=== PATIENT | male | born 1970 | race Two or more races ===

== ENCOUNTER 2024-04-22 19:22 | Emergency (ER) | payer OTHER ==
[~2024-04-22] VITALS: Ht 182.9 cm; Wt 84.8 kg
[2024-04-22] MEDS ORDERED: TRAMADOL HCL 50 MG TABLET PO STA ×2 (22:25→22:26)
== END 2024-04-22 22:43 | disposition home or self-care (01) ==
LOC: ER 19:25
DX: S90.01XA Contusion of right ankle, initial encounter (principal); X58.XXXA Exposure to other specified factors, initial encounter; Y93.89 Activity, other specified; Y92.89 Other specified places as the place of occurrence of the external cause; Y99.9 Unspecified external cause status